=== PATIENT | female | born 2000 | race Caucasian/White ===

== ENCOUNTER 2022-04-27 18:32 | Emergency (ER) | payer SELFPAY ==
[2022-04-27 18:32] VITALS: BP 141/70; PULSE 121; RESP 20; TEMP 36.3; O2SAT 97; BMI 30.2
--- NOTE | 2022-04-27 18:56 | EKG12_ITS ---
Test Reason : SOB Blood Pressure : / mmHG Vent. Rate : 096 BPM Atrial Rate : 096 BPM P-R Int : 154 ms QRS Dur : 082 ms QT Int : 356 ms P-R-T Axes : 085 085 071 degrees QTc Int : 449 ms Normal sinus rhythm Possible Right atrial enlargement Borderline ECG Confirmed by CAREY BLAIR, NENA ([id number]), legal editor THANG GOTTLIEB ([id number]) on 04/29/2022 8:49:56 AM Referred By: Confirmed By:NENA PATINO MD
--- NOTE | 2022-04-27 18:57 | EDS_ITS ---
HPI History of Present Illness Chief Complaint: Shortness of Breath Informant: patient Onset/Context/Timing Onset: Today Context: Gradual Onset Current Severity: Moderate Maximum Severity: Moderate Narrative Narrative: Patient presents with increasing shortness of breath along with cough with yellow sputum production. She had a fever this afternoon. She does describe chest tightness as well as sharp pain in the substernal area. She denies known history of asthma, but does state that she tends to get bronchitis about every 6 months and will require inhalers. She is a smoker. Someone in her household was just diagnosed with pneumonia last night. [facility] Medical History Tobacco abuse Home Medications albuterol sulfate 90 mcg/actuation aerosol inhaler (Ventolin HFA) 2 puff inhalation Q4H PRN PRN Wheezing ##1 04/27/22 [Rx Last Taken Unknown] prednisone 20 mg tablet 40 mg PO DAILY #8 tabs 04/27/22 [Rx Last Taken Unknown] Allergy/AdvReac Type Severity Reaction Status Date / Time No Known Allergies Allergy Verified 04/27/22 18:36 Social History Smoking Status: Current every day smoker tobacco type: cigarettes ROS ROS ED Constitutional Constitutional ED: Reports fever(s); Denies chills Eyes Eyes: Denies change in vision or discharge from eye(s) ENT ENT ED: Denies discharge from eye(s), rhinorrhea or sore throat Cardiovascular Cardiovascular: Reports chest pain; Denies palpitations Respiratory/Chest Respiratory/Chest: Reports cough, dyspnea and sputum Gastrointestinal Gastrointestinal: Denies abdominal pain, diarrhea, nausea or vomiting Genitourinary Genitourinary ED: Denies difficulty urinating or dysuria Musculoskeletal Musculoskeletal: Denies back pain or extremity pain Integumentary Denies Abrasions or rash Neurologic Neurologic: Denies headache(s) or weakness Allergic/Immunologic Allergic/Immunologic ED: Denies lip swelling or urticaria EXAM Physical Exam Const Vital Signs: 04/27/22 18:32 04/27/22 18:45 04/27/22 20:56 Temperature 97.3 F L Temperature Source Temporal Pulse Rate 121 H 92 Respiratory Rate 20 H 17 Respiratory Effort Short of Breath Labored Respiratory Pattern Blood Pressure 141/70 H 140/78 H Blood Pressure Mean 93 Pulse Ox 97 97 Oxygen Delivery Method Room Air 04/27/22 19:12 Temperature Temperature Source Pulse Rate Respiratory Rate Respiratory Effort Respiratory Pattern Normal Blood Pressure Blood Pressure Mean Pulse Ox Oxygen Delivery Method Positive well nourished and well developed General Appearance ED: well developed HEENT Reports normocephalic and head/scalp atraumatic Eyes PERRL and EOMs intact bilaterally Neck supple Chest Wall inspection of chest normal and palpation of chest normal Resp normal respiratory effort Resp Narrative: Tight expiratory wheezes throughout. Cardio regular rhythm Rate: tachycardic GI normal to inspection, nondistended, normoactive bowel sounds Palpation: soft Back/Spine no CVA tenderness Extremity normal to inspection Neuro oriented x3 and no sensory deficits noted Sensorium / Orientation: alert Motor Exam: strength 5/5 throughout Psych mental status grossly normal Skin no rashes or lesions noted MDM MDM MDM Narrative Medical decision making narrative: Patient is given Solu-Medrol and DuoNeb treatment. Lab work and chest x-ray obtained. Lab Data Attestation: I reviewed the patient's lab results. Labs: Laboratory Results - last 24 hr 04/27/22 04/27/22 04/27/22 19:23 19:23 19:23 WBC 11.3 H RBC 4.34 Hgb 14.0 Hct 42.6 MCV 98.2 MCH 32.3 H MCHC 32.9 RDW Std Deviation 43.4 RDW Coeff of Haylee 11.9 Plt Count 180 MPV 12.2 H Immature Gran % (Auto) 0.200 Neut % (Auto) 81.9 H Lymph % (Auto) 9.7 L [place] % (Auto) 5.9 Eos % (Auto) 2.0 Baso % (Auto) 0.3 Absolute Neuts (auto) 9.2 H Absolute Lymphs (auto) 1.09 Nucleated RBC % 0 D-Dimer Quant (PE/DVT) Cancelled Sodium 141 Potassium 4.8 Chloride 109 H Carbon Dioxide 27.0 Anion Gap 5 BUN 5 L Creatinine 0.74 Estim Creat Clear Calc 109.74 Est GFR (MDRD) Af Amer 123 Est GFR (MDRD) Non-Af 102 BUN/Creatinine Ratio 6.7 L Glucose 106 Calcium 9.6 Serum , Qual 04/27/22 04/27/22 19:23 19:59 WBC RBC Hgb Hct MCV MCH MCHC RDW Std Deviation RDW Coeff of Haylee Plt Count MPV Immature Gran % (Auto) Neut % (Auto) Lymph % (Auto) [place] % (Auto) Eos % (Auto) Baso % (Auto) Absolute Neuts (auto) Absolute Lymphs (auto) Nucleated RBC % D-Dimer Quant (PE/DVT) 0.40 Sodium Potassium Chloride Carbon Dioxide Anion Gap BUN Creatinine Estim Creat Clear Calc Est GFR (MDRD) Af Amer Est GFR (MDRD) Non-Af BUN/Creatinine Ratio Glucose Calcium Serum , Qual NEGATIVE Radiography Chest X-Ray - ED: 1 View, Read by ED Physician, Normal, Heart, Lungs and Mediastinum Diagnostic Testing: Clinical Impression(s) from Imaging Studies Chest X-Ray 04/27/22 19:40 IMPRESSION: 1. Normal x-ray examination of the chest. 2. No pneumonia, pneumonitis, bronchitis, or hyperinflation of asthma. 3. No demonstration of other abnormalities. Electronically Signed: Jhonny Ludwig MD at 20:12 EDT , EKG Initial EKG: Attestation: I personally reviewed and interpreted this EKG as follows: Interpretation: Sinus Rhythm (Sinus at 96 with no acute ischemia.) Treatment and Re-Evaluation Narrative: On repeat evaluation patient feels significantly improved. Lung sounds are clear. Test results discussed with her. Lab work is unremarkable including a negative D-dimer. Chest x-ray reveals no infiltrate. She will be given prescription for albuterol inhaler and prednisone. I believe her illness is viral in nature and does not require antibiotic at this time. Return instructions are provided. Discharge Plan Triage Chief Complaint: Shortness of Breath ED Provider: Maureen Calle Dx/Rx/DC Orders Clinical Impression: Acute bronchitis with bronchospasm Instructions: ED Bronchitis with Wheezing (Adult) Prescriptions: New prednisone 20 mg tablet 40 mg PO DAILY Qty: 8 0RF albuterol sulfate [Ventolin HFA] 90 mcg/actuation HFA aerosol inhaler 2 puff inhalation Q4H PRN PRN (Reason: Wheezing) Qty: 1 0RF Primary Care Provider: Care Physician,No Primary Referrals: Ben Gutierrez MD [STAFF PHYSICIAN] - 1-2 Weeks Care Physician,No Primary [Primary Care Provider] - Disposition Disposition: Home, Self Care Discharge Date/Time: 04/27/22 20:56
[2022-04-27] MEDS: Ipratropium/Albuterol Sulfate 3 ML AMPUL.NEB INHALATION (19:12)
[2022-04-27] MEDS: 0.9% Normal Saline 1,000 ML 150 ML IV (19:21)
[2022-04-27] MEDS: MethylPREDNISolone 125 MG/2 ML Vial IV (19:21)
[2022-04-27 19:32] LABS: Absolute Lymphocyte Count 1.09 X10^3/uL (0.83-4.51); Absolute Neutrophil Count 9.2 X10^3/uL (2.0-7.7); Basophil# 0.03 X10^3/uL; Basophil% 0.3 % (0-1); Eosinophil# 0.23 X10^3/uL; Hematocrit 42.6 % (37-47); Lymphocyte # 1.09 X10^3/ul (0.83-4.51); Lymphocyte % 9.7 % (19-41); Mean Corp Hgb Conc 32.9 g/dL (32-36); Mean Corpuscular Hgb 32.3 pg (27.0-32.0); Mean Corpuscular Volume 98.2 fL (81-99); Mean Platelet Vol. 12.2 fl (6.2-12.0); Monocyte# 0.66 X10^3/uL; Monocyte% 5.9 % (0-10); NRBC Flagged by Analyzer 0 % (0-5); Neutrophil # 9.24 X10^3/uL (2.7-7.7); Neutrophil % 81.9 % (47-70); Platelet Count 180 K/mm3 (150-450); RBC Distribution Width CV 11.9 % (11.6-14.6); RBC Distribution Width SD 43.4 fl (35.1-43.9); Red Blood Count 4.34 M/mm3 (4.2-5.4); White Blood Count 11.3 K/mm3 (4.4-11.0)
--- NOTE | 2022-04-27 19:40 | RAD_ITS ---
STUDY: PORTABLE AP UPRIGHT CHEST X-RAY OF 1942 HOURS ON 04/27/2022 REASON FOR EXAM: 22-year-old female with shortness of breath. TECHNIQUE: A single view portable AP upright chest x-ray was performed per protocol. COMPARISON: None. FINDINGS: The lungs are clear and expanded. There is no demonstrated pleural abnormality. No pneumonia, pneumonitis, or bronchitis. No hyperinflation or evidence of asthma. There is no evidence of pulmonary mass lesions. Normal size heart. Normal mediastinum and roddy. Normal visualized pulmonary arteries. Normal visualized aortic arch and descending thoracic aorta. Normal visualized thoracic spine. Normal visualized ribs, clavicles, and shoulders. There is no demonstrated abnormality of the visualized soft tissue structures of the upper abdomen. RAD/Chest 1 View (Portable) IMPRESSION: 1. Normal x-ray examination of the chest. 2. No pneumonia, pneumonitis, bronchitis, or hyperinflation of asthma. 3. No demonstration of other abnormalities. Electronically Signed: Jhonny Ludwig MD at 20:12 EDT ,
[2022-04-27 19:42] LABS: Internal QC Validated? YES +Cl - CLEAR BKGD; Pregnancy, Serum, hCG Quali. NEGATIVE Negative
[2022-04-27 19:49] LABS: Anion Gap 5 (5-15); BUN 5 mg/dL (7-18); BUN/Creat Ratio 6.7 RATIO (10-20); Calcium,Total 9.6 mg/dL (8.5-10.1); Chloride 109 mmol/L (98-107); Creatinine, Serum 0.74 mg/dL (0.55-1.02); EST Glomerular Filtration Rate 102 mL/min (>60); Est Glom Filt Rate - Afr Amer 123 mL/min (>60); Estimated Creatinine Clearance 109.74 ml/min; Glucose 106 mg/dL (74-106); Potassium 4.8 mmol/L (3.5-5.1); Sodium Level 141 mmol/L (136-145)
--- NOTE | 2022-04-27 20:55 | CPS ---
x3 Albuterol not given to pt. at this time. Pt. politely refused any more tx.'s, and when I listened to her breath sounds, she was clear through out with no signs of respiratory distress.
[2022-04-27 20:56] VITALS: BP 140/78; PULSE 92; RESP 17; O2SAT 97
== END 2022-04-27 20:56 | disposition home or self-care (01) ==
PROVIDERS: Emergency Provider Emergency Medicine; Visit Provider Emergency Medicine
DX: J20.9 Acute bronchitis, unspecified (principal); F17.210 Nicotine dependence, cigarettes, uncomplicated
CPT/HCPCS: 71045; 80048; 84703; 85025; 85379; 87428; 93005; 94640; 96361; 96374; 99284; J7030; A4216